=== PATIENT | female | born 1975 | race American Indian/Alaskan Native ===

== ENCOUNTER 2017-05-29 17:36 | Emergency (ER) | payer BC, OTHER ==
[2017-05-29 17:50] VITALS: BP 121/86
[2017-05-29] MEDS ORDERED: FUL-GLO OP ONE (18:22)
[2017-05-29] MEDS ORDERED: TETRACAINE 0.5% OD STA (18:22)
--- NOTE | 2017-05-29 18:29 | Emergency Department Report ---
<SOFIAVIRGENELIZABETH ARORA M - Last Filed: 05/29/17 19:22> ED Eye Problem HPI - General Chief complaint: Eye Problems Stated complaint: PINK EYE Time Seen by Provider: 05/29/17 18:16 Source: patient Mode of arrival: Ambulatory Limitations: No Limitations - History of Present Illness Initial comments: PT states she thinks she has pink eye. PT states she woke up this morning with R eye redness and drainage. 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 PT does wear colored contacts and she has been wearing this current pair x 1 month. PT states she is still wearing her contacts and she has her glasses with her. PT denies eye injury or changes in her vision MD chief complaint: eye redness -: During the night (woke up with symptoms ) Onset Description: awoke with symptoms Location: right eye Place: home If Injury: none Eye Symptoms: redness, discharge Severity scale (0 -10): 0 Consistency: constant Context: contact lens use Treatments Prior to Arrival: none - Related Data Previous Rx's Medication Instructions Recorded Last Taken Type Erythromycin [Erythromycin Ophth 1 cm OD QID 7 Days 05/29/17 Unknown Rx Oint] Ofloxacin 0.3% [Ocuflox] 1 - 2 drops OP QID #1 bottle 05/31/17 Unknown Rx Allergies Allergy/AdvReac Type Severity Reaction Status Date / Time No Known Allergies Allergy Unverified 05/29/17 17:50 ED Review of Systems ROS: Stated complaint: PINK EYE Other details as noted in HPI Comment: All other systems reviewed and negative Constitutional: denies: chills, fever Eyes: as per HPI, eye discharge. denies: vision change Gastrointestinal: denies: nausea, vomiting Skin: denies: rash, change in color ED Past Medical Hx - Past Medical History Previous Medical History?: No - Surgical History Past Surgical History?: No - Social History Smoking Status: Never Smoker Substance Use Type: None - Medications Home Medications: Home Medications Medication Instructions Recorded Confirmed Last Taken Type Erythromycin [Erythromycin Ophth 1 cm OD QID 7 Days 05/29/17 Unknown Rx Oint] Ofloxacin 0.3% [Ocuflox] 1 - 2 drops OP QID #1 bottle 05/31/17 Unknown Rx ED Physical Exam - General Limitations: No Limitations General appearance: alert, in no apparent distress - Head Head exam: Present: atraumatic, normocephalic, normal inspection - Eye Eye exam: Present: PERRL, EOMI, conjunctival injection (R eye ). Absent: periorbital swelling, periorbital tenderness Pupils: Present: normal accommodation - Expanded Eye Exam Expanded Eyelids: Normal Inspection: Right Pupils: Regular, Round: Bilateral Sclera/Conjunctival: Injection: Right, Exudate: Right Anterior chamber: Normal Inspection: Bilateral Visual acuity (R) = 20/: 25 Visual acuity (L) = 20/: 30 With correction: Yes - ENT ENT exam: Present: normal exam, mucous membranes moist, normal external ear exam - Neck Neck exam: Present: normal inspection, full ROM. Absent: lymphadenopathy - Respiratory Respiratory exam: Present: normal lung sounds bilaterally. Absent: respiratory distress - Cardiovascular Cardiovascular Exam: Present: regular rate, normal rhythm, normal heart sounds - Extremities Exam Extremities exam: Present: normal inspection, full ROM - Back Exam Back exam: Present: normal inspection, full ROM - Neurological Exam Neurological exam: Present: alert, oriented X3 - Psychiatric Psychiatric exam: Present: normal affect, normal mood - Skin Skin exam: Present: warm, dry, intact, normal color ED Course Vital Signs 05/29/17 17:48 Temperature 98.5 F Pulse Rate 91 H Respiratory 18 Rate Blood Pressure 121/86 O2 Sat by Pulse 100 Oximetry - Reevaluation(s) Reevaluation #1: 05/29/17 18:44 PT removed her contact and disposed of it so I could examine her eye. PT had some difficulty removing contact lens. PT aware she should not wear contacts while her eye is red and draining. 05/29/17 19:23 I am concerned that pt caused corneal abrasion when she was removing her contact lens. - Eye Procedure Alcaine Drops Administered: Yes Eye FB Removal: other (no fb seen ) Eye Irrigated w/ Saline (ccs): 5 Progress: + corneal abrasion at the six o'clock position of the R eye - no corneal ulcer noted. - Pulse Oximetry Interpretation Digit-Finger Initial Pulse Oximetry Readin Actions Taken: none ED Medical Decision Making - Differential Diagnosis conjunctivitis, corneal ulcer, corneal abrasion Critical Care Time: No Critical care attestation.: If time is entered above; I have spent that time in minutes in the direct care of this critically ill patient, excluding procedure time. ED Disposition Clinical Impression: Conjunctivitis, Corneal abrasion, Need for Tdap vaccination Disposition: DC-01 TO HOME OR SELFCARE Is pt being admited?: No Does the pt Need Aspirin: No Condition: Stable Instructions: Conjunctivitis (ED), Corneal Abrasion (ED) Additional Instructions: Warm compresses at least 4 times a day good hand hygiene Do not wear your contacts at this time. Follow up with your eye doctor in the next 2-3 days Return to the ED if worsening or concerns Prescriptions: Erythromycin [Erythromycin Ophth Oint] 1 cm OD QID 7 Days Ofloxacin 0.3% [Ocuflox] 1 - 2 drops OP QID #1 bottle Referrals: MARKELL MEEK JR, MD [Staff Physician] - 3-5 Days WILLIAM MERINO MD [Staff Physician] - 3-5 Days (Ophthalmology ) DEBI DOUGLAS MD [Staff Physician] - 3-5 Days (Ophthalmology ) Forms: Work/School Release Form(ED) Time of Disposition: 19:12 <VONDA HUA - Last Filed: 05/31/17 05:29> ED Medical Decision Making - Medical Decision Making pt is a contact lens wear and should be placed on a fluoroquinolone for corneal abrasion. I will write fluroquinolone ophthalmic. Advised good Rx card to help reduce Howell. Patient also need ophthalmology outpatient follow-up. Call back was ordered. Prescription may be called in a patient does not want to return to the ED.
[2017-05-29] MEDS ORDERED: BOOSTRIX IM ONE (18:42)
== END 2017-05-29 19:33 | disposition home or self-care (01) ==
LOC: ED 17:36
DX: H10.9 Unspecified conjunctivitis (principal); S05.01XA Injury of conjunctiva and corneal abrasion without foreign body, right eye, initial encounter; X58.XXXA Exposure to other specified factors, initial encounter; Y93.89 Activity, other specified; Y92.89 Other specified places as the place of occurrence of the external cause; Y99.8 Other external cause status
CPT/HCPCS: 90471; 90715; 99283